=== PATIENT | male | born 1975 | race Caucasian/White ===

== ENCOUNTER 2021-10-09 04:22 | Emergency (ER) | payer OTHER ==
[2021-10-09 04:53] LABS: HEMOGLOBIN 18.7 gm/dl (14.0-17.5); RED BLOOD COUNT 5.76 M/UL (4.20-5.50); WHITE BLOOD COUNT 7.3 K/UL (4.5-11.0)
[2021-10-09 05:16] LABS: BUN/CREATININE RATIO 10 (0-10)
== END 2021-10-09 06:30 | disposition home or self-care (01) ==
LOC: ER1 04:22
PROVIDERS: Emergency Medicine
DX: R07.89 Other chest pain (principal); I25.2 Old myocardial infarction
CPT/HCPCS: 71045; 80053; 82550; 82553; 83874; 83880; 84484; 85025; 93005; 99285; Q0177

== ENCOUNTER 2021-12-06 04:33 | Inpatient (IN) | payer OTHER ==
[~2021-12-06] VITALS: Ht 172.7 cm; Wt 98.2 kg
[2021-12-06 05:01] LABS: HEMOGLOBIN 16.2 gm/dl (14.0-17.5); RED BLOOD COUNT 5.49 M/UL (4.20-5.50)
[2021-12-06] MEDS ORDERED: CARAFATE1 GM PO (15:45)
[2021-12-06] MEDS ORDERED: IPRAT-ALBUT 0.5-3 ML INH (15:45)
[2021-12-06] MEDS ORDERED: PAXIL20 MG PO (15:46)
[2021-12-06] MEDS ORDERED: CLONIDINE HCL0.1 MG PO (15:46)
[2021-12-06] MEDS ORDERED: TRAZODONE HCL150 MG PO (15:46)
[2021-12-06] MEDS ORDERED: COZAAR25 MG PO (15:47)
[2021-12-06] MEDS ORDERED: PROTONIX 40 MG40 M1 PO (15:47)
[2021-12-06] MEDS ORDERED: VISTARIL 50 MG50 MG PO (15:48)
[2021-12-07 03:27] LABS: HEMOGLOBIN 14.9 gm/dl (14.0-17.5); RED BLOOD COUNT 4.99 M/UL (4.20-5.50)
--- NOTE | 2021-12-07 17:04 | NUR ---
0800 INSTRUCTED PT RE: CARDIAC CATH. ENCOURAGED PT TO PUT ON HOSPITAL GOWN. VAPE NOTED ON BEDSIDE TABLE. WHEN ASK IF HE HAD BEEN VAPING HE DENIED AND STATED THAT IT WAS HIS GIRLFRIEND'S VAPE. INFORMED THEM THAT THIS IS A NON-SMOKING / NON-VAPING FACILITY. 0955 BACK FROM TRAFFIC SAFETY ADMINISTRATOR. SHEATH INTACT TO RIGHT FEMORAL SITE. POSITIVE PEDAL PULSES NOTED. EXTREMITY WARM AND DRY. ABLE TO MOVE TOES WITHOUT PROBLEMS 1200 PT DOZING RESTFULLY. GIRLFRIEND AT BEDSIDE REQUESTING THAT HE RECEIVE PAIN MEDICATION. TYLENOL #3 X 2 GIVEN PER ORDERS. 1410 PT STATES TYLENOL DID NOT RELIEVE PAIN. MORPHINE GIVEN IV AND PHENERGAN GIVEN PER PT REQUEST. 1545 FOOD DELIVERED FOR PT BY FAMILY MEMBER DOWNSTAIRS. STOCK PREPARATION OPERATOR DELIVERED FOOD TO FLOOR AND TOLD NURSING STAFF THAT FAMILY STATED THAT THERE WAS MEDICATIONS IN THE BAG. UPON LOOKING IN SONIC BAG, LARGE BOTTLE OF LIQUID PHENERGAN FOUND AND 5 LOOSE WHITE OBLONG PILLS NOTED IN THE BOTTOM OF THE BAG. PHENERGAN BOTTLE HAS PT'S GIRLFRIEND'S NAME ON IT. MANAGER [employer]IANCE (Ca SAMUELS) NOTIFIED. SHE NOTIFIED PHOTOGRAMMETRIC STEREO COMPILER (Alberto GRIFFIN) AND Rena GRIFFIN. THEY INSTRUCTED HER TO EDUCATE THE PT AND HIS GIRLFRIEND THAT HE WAS NOT TO TAKE ANY MEDICATIONS UNLESS GIVEN BY NURSE. THEY VERBALIZED UNDERSTANDING. SHE NOTIFIED 1427 EXPLAINED TO PT THE PROCESS OF PULLING RIGHT FEMORAL SHEATH. VERBALIZED UNDERSTANDING. PT PLACED OUT OF TRENDELBERG, ROLLED WITH RIGHT LEG KEPT STRAIGHT TO REMOVE TRAFFIC SAFETY ADMINISTRATOR LINENS UNDERNEATH, AND FEMSTOP STRAP PLACED UNDER HIM. FEMSTOP APPLIED TO RIGHT FEMORAL SITE SHEATH WAS REMOVED TO ASSIST WITH PRESSURE. EXPLAINED IMPORTANCE OF KEEPING LEG STRAIGHT POSSIBLE TO ALLOW FOR GOOD SEALING OF SITE. VERBALIZED UNDERSTANDING. SITE ASSESSED FOR 25 MINUTES WITH NO BRUISING, BLEEDING OR EDEMA NOTED. GOOD PEDAL PULSES AND POPITEAL PULSES NOTED. PT ABLE WIGGLE TOES AND DENIES ANY PAIN AT SITE.
[2021-12-07 18:02] LABS: HEMOGLOBIN 14.8 gm/dl (14.0-17.5); RED BLOOD COUNT 5.01 M/UL (4.20-5.50); WHITE BLOOD COUNT 10.2 K/UL (4.5-11.0)
[2021-12-08 03:25] LABS: HEMOGLOBIN 14.8 gm/dl (14.0-17.5); RED BLOOD COUNT 4.99 M/UL (4.20-5.50)
[2021-12-08] MEDS ORDERED: ATORVASTATIN CA20 MG PO (10:38)
[2021-12-08] MEDS ORDERED: ASPIRIN EC81 MG PO (10:38)
[2021-12-08] MEDS ORDERED: BRILINTA 90 MG90 MG PO (10:38)
[2021-12-08] MEDS ORDERED: LOPRESSOR 25 MG25 MG PO (10:38)
--- NOTE | 2021-12-08 12:09 | NUR ---
DISCHARGE INSTRUCTIONS GIVEN TO PT / GIRLFRIEND ON CATH SITE CARE AND FOLLOW UP. INFORMATION GIVEN ON MEDICATIONS. CARD GIVEN FOR DISCOUNT ON BRIL[place]. PT REQUEST PAIN MEDICATIONS. DENIED CHEST PAIN, REQUEST IT FOR "HIP" PAIN. ENCOURAGED HIM TO CONTACT HIS PRIMARY PHYSICIAN FOR REFILLS FOR CHRONIC PAIN MEDICATIONS.
== END 2021-12-08 12:00 | disposition home or self-care (01) | DRG 246 ==
LOC: ER1 04:33 → CDU 05:40 → PROG CARE 05:40
PROVIDERS: Emergency Medicine; Internal Medicine; Internal Medicine Interventional Cardiology; ADMIT Internal Medicine
PROC: B24BZZZ Ultrasonography of Heart with Aorta (ICD-10-PCS; principal; 2021-12-06)
PROC: 8E0ZXY6 Isolation (ICD-10-PCS; 2021-12-06)
PROC: 027034Z Dilation of Coronary Artery, One Artery with Drug-eluting Intraluminal Device, Percutaneous Approach (ICD-10-PCS; 2021-12-07)
PROC: 4A023N7 Measurement of Cardiac Sampling and Pressure, Left Heart, Percutaneous Approach (ICD-10-PCS; 2021-12-07)
PROC: B2111ZZ Fluoroscopy of Multiple Coronary Arteries using Low Osmolar Contrast (ICD-10-PCS; 2021-12-07)
PROC: 3E033XZ Introduction of Vasopressor into Peripheral Vein, Percutaneous Approach (ICD-10-PCS; 2021-12-07)
DX: I21.3 ST elevation (STEMI) myocardial infarction of unspecified site (principal); U07.1 COVID-19; N17.9 Acute kidney failure, unspecified; I25.10 Atherosclerotic heart disease of native coronary artery without angina pectoris; F41.9 Anxiety disorder, unspecified; F32.A Depression, unspecified; I08.1 Rheumatic disorders of both mitral and tricuspid valves; I10 Essential (primary) hypertension; E78.00 Pure hypercholesterolemia, unspecified; I95.9 Hypotension, unspecified; K59.09 Other constipation; F17.210 Nicotine dependence, cigarettes, uncomplicated; G89.29 Other chronic pain; M47.896 Other spondylosis, lumbar region; Z86.718 Personal history of other venous thrombosis and embolism; Z79.01 Long term (current) use of anticoagulants; Z95.5 Presence of coronary angioplasty implant and graft; Z86.711 Personal history of pulmonary embolism; Z79.82 Long term (current) use of aspirin; Z90.49 Acquired absence of other specified parts of digestive tract; Z82.49 Family history of ischemic heart disease and other diseases of the circulatory system
CPT/HCPCS: ECHO; 36415; 71045; 80048; 80053; 82550; 82553; 83036; 83735; 83874; 84484; 85025; 85027; 85347; 85610; 85730; 93005; 93306; 94640; 94664; 94760; 96374; 96376; 99152; 99153; 99285; C1725; C1769; C1874; C1887; C9600; J0461; J1170; J1644; J2250; J2270; J2370; J2550; J3010; J3246; J7040; Q0177; Q9965; U0002

== ENCOUNTER → 2022-01-29 | Outpatient (CLI) | payer OTHER ==
[~2022-01-29] MED LIST: ASPIRIN EC81 MG PO; ATORVASTATIN CA20 MG PO; BRILINTA 90 MG90 MG PO; CARAFATE1 GM PO; CLONIDINE HCL0.1 MG PO; COZAAR25 MG PO; IPRAT-ALBUT 0.5-3 ML INH; LOPRESSOR 25 MG25 MG PO; PAXIL20 MG PO; PROTONIX 40 MG40 M1 PO; TRAZODONE HCL150 MG PO; VISTARIL 50 MG50 MG PO
== END ==
LOC: HEART 5 13:44
DX: R06.02 Shortness of breath (principal)
CPT/HCPCS: 94060; 94729